=== PATIENT | female | born 1935 | race Caucasian/White ===

== ENCOUNTER → 2017-03-11 | Outpatient (CLI) | payer MEDICARE, BC ==
[~2017-03-11] MED LIST: ASPIR-LOW81 MG PO; CALTRATE-600 W600 MG PO; DARVOCET-N-101 UDTAB PO; FOSAMAX 70MG TA70 MG PO; HCTZ 25MG25 MG PO; HCTZ PO; LEVOTHYROXIN0.075 MG PO; LOPRESSOR 225 MG/TAB PO; LOTREL 5 MG-201 CAP PO; MICRO-K8 MEQ PO; POTASSIUM CH2 MEQ/ML PO; PROFERRIN PO; SYNTHROID0.075 MG/T PO; TYLENOL 500MG500 MG PO; ZOCOR 20MG20 MG PO; [UNRECOGNIZED DRUG - CODE] PO; [UNRECOGNIZED DRUG - OTHER] PO
== END ==
LOC: MC.RAD 11:33
DX: Z12.31 Encounter for screening mammogram for malignant neoplasm of breast (principal)

== ENCOUNTER → 2018-03-19 | Outpatient (CLI) | payer MEDICARE, BC | LOC: MC.RAD 10:34 | DX: Z12.31 Encounter for screening mammogram for malignant neoplasm of breast (principal) ==

== ENCOUNTER → 2019-03-28 | Outpatient (CLI) | payer MEDICARE, BC ==
[~2019-03-28] MED LIST changes: +NITROSTAT0.4 MG/TAB SL; +PRILOSEC 20MG20 MG PO; +SYNTHROID0.088 MG/T PO
== END ==
LOC: MC.RAD 10:28
DX: Z12.31 Encounter for screening mammogram for malignant neoplasm of breast (principal)

== ENCOUNTER 2019-09-14 14:05 | Emergency (ER) | payer MEDICARE, BC ==
[~2019-09-14] VITALS: Ht 157.5 cm; Wt 54.5 kg
[2019-09-14 14:11] VITALS: TEMP 97.9
[2019-09-14] MEDS ORDERED: LOTREL 5/20 CAP1 CAP PO (15:02)
[2019-09-14 15:03] LABS: PROTHROMBIN TIME 11.9 SECONDS (9.7-12.8)
[2019-09-14] MEDS ORDERED: ASPIRIN 81M81 MG/TA2 PO (15:03)
[2019-09-14] MEDS ORDERED: ELIQUIS 5MG PO (15:03)
[2019-09-14] MEDS ORDERED: SYNTHROID0.075 MG/T PO (15:04)
[2019-09-14] MEDS ORDERED: SYNTHROID0.088 MG/T PO (15:06)
[2019-09-14 15:10] LABS: ALBUMIN 4.8 gm/dL (3.5-5.0); BILIRUBIN,TOTAL 0.6 mg/dL (0.0-1.0); CALCIUM 8.9 mg/dL (8.4-10.2); CREATININE, serum 1.16 (0.52-1.25); POTASSIUM 3.3 mmol/L (3.4-5.0); TOTAL PROTEIN 8.1 gm/dL (6.4-8.2)
[2019-09-14 15:22] LABS: BASO % 0.4 % (0.0-2.0); GRAN # 7.4 (1.4-6.5); GRAN % 79.2 % (42.2-75.2); HEMATOCRIT 39.2 % (37.0-47.0); HEMOGLOBIN 13.2 g/dl (12.5-16.0); LYMPH # 1.3 (1.2-3.4); LYMPH % 13.5 % (20.0-51.0); MEAN CELL VOLUME 95 fl (80.0-100.0); MEAN CORPUSCULAR HEMOGLOBIN 32 pg (27.0-31.0); MEAN CORPUSCULAR HGB CONC 34 g/dl (33.0-37.0); MEAN PLATELET VOLUME 10.3 fl (7.4-10.4); MONO # 0.6 (0.1-0.6); MONO % 6.5 % (1.7-9.3); PLATELET COUNT 177 K/mm3 (130-400); RED BLOOD COUNT 4.11 M/mm3 (4.10-5.30); REDCELL DISTRIBUTION WIDTH-CV 13.2 % (11.5-14.5)
[2019-09-14 15:45] VITALS: BP 116/68; PULSE 70
== END 2019-09-14 15:45 | disposition short-term general hospital (02) ==
LOC: COL.ER 14:05
PROVIDERS: Emergency Medicine
DX: I61.8 Other nontraumatic intracerebral hemorrhage (principal); Z79.82 Long term (current) use of aspirin; Z79.01 Long term (current) use of anticoagulants
CPT/HCPCS: C9132; J1953; J7030

== ENCOUNTER 2021-05-12 11:02 | Emergency (ER) | payer MEDICARE, BC ==
[~2021-05-12] VITALS: Ht 157.5 cm; Wt 61.4 kg
[~2021-05-12 11:02] MED LIST changes: +ASPIRIN 32325 MG/TAB PO; +ASPIRIN 81M81 MG/TA2 PO; +COLACE 100100 MG/CAP PO; +DULCOLAX STOOL100 MG PO; +ELIQUIS 5MG PO; +K-DUR20 MEQ PO; +KEPPRA 500MG500 MG PO; +LIPITOR20 MG PO; +LIQUIFILM TEARS15 ML OU; +LOTREL 5/20 CAP1 CAP PO; +LOVENOX 3030 MG/0.3 SQ; +MAG-OX 400400 MG/TAB PO; +MILK OF MA400 MG/52 PO; +NORVASC 5MG5 MG/TAB PO; +PACERONE100 MG PO; +PEPCID 20MG TAB20 MG PO; +TYLENOL 325MG325 MG PO; +TYLENOL SU650 MG/SUP RC
[2021-05-12 11:08] VITALS: BP 155/80; PULSE 78; TEMP 98.2
[2021-05-12] MEDS ORDERED: CLEOCIN HCL300 MG PO (11:30)
== END 2021-05-12 11:50 | disposition home or self-care (01) ==
LOC: COL.ER 11:02
DX: K04.7 Periapical abscess without sinus (principal); I10 Essential (primary) hypertension; E03.9 Hypothyroidism, unspecified; E78.5 Hyperlipidemia, unspecified; I48.91 Unspecified atrial fibrillation; Z79.890 Hormone replacement therapy; Z79.899 Other long term (current) drug therapy
CPT/HCPCS: J1100

== ENCOUNTER 2021-07-24 20:10 | Emergency (ER) | payer MEDICARE, BC ==
[~2021-07-24] VITALS: Ht 157.5 cm; Wt 61.4 kg
[~2021-07-24 20:10] MED LIST changes: +CLEOCIN HCL300 MG PO
[2021-07-24 20:13] VITALS: TEMP 98
[2021-07-24 21:27] LABS: BASO % 0.4 % (0.0-2.0); GRAN # 4.4 K/mm3 (1.4-6.5); GRAN % 80.8 % (42.2-75.2); HEMOGLOBIN 13.6 g/dl (12.5-16.0); LYMPH # 0.5 K/mm3 (1.2-3.4); LYMPH % 8.4 % (20.0-51.0); MEAN CELL VOLUME 92 fl (80.0-100.0); MEAN CORPUSCULAR HEMOGLOBIN 31 pg (27-31); MEAN CORPUSCULAR HGB CONC 34 g/dl (33.0-37.0); MEAN PLATELET VOLUME 10.4 fl (7.4-10.4); MONO # 0.5 K/mm3 (0.1-0.6); MONO % 9.9 % (1.7-9.3); PLATELET COUNT 157 K/mm3 (130-400); RED BLOOD COUNT 4.34 M/mm3 (4.10-5.30); REDCELL DISTRIBUTION WIDTH-CV 13.2 % (11.5-14.5)
[2021-07-24 21:34] LABS: BILIRUBIN,TOTAL 0.5 mg/dL (0.2-1.2); CALCIUM 8.5 mg/dL (8.4-10.2); CREATININE, serum 1.27 mg/dL (0.57-1.11); POTASSIUM 3.3 mmol/L (3.5-4.5); TOTAL PROTEIN 7.4 gm/dL (6.2-8.1)
[2021-07-24 22:23] LABS: COLLECTION METHOD CATHETER
[2021-07-24 22:30] LABS: PH 6 (5-8); SQUAMOUS EPITHELIAL 0-2 /hpf (0-10); URINE APPEARANCE Hazy (CLEAR/HAZY); URINE BACTERIA None Seen /hpf (NONE SEEN); URINE BILIRUBIN Negative (NEGATIVE); URINE BLOOD Negative (NEGATIVE); URINE COLOR Yellow (YELLOW); URINE GLUCOSE Negative (NEGATIVE); URINE KETONE 1+ (NEGATIVE); URINE LEUKOCYTE ESTERASE Negative (NEGATIVE); URINE NITRATE Negative (NEGATIVE); URINE PROTEIN(semi-quant) Negative (NEGATIVE); URINE RBC 0-2 /hpf (0-2); URINE UROBILINOGEN Negative (NEGATIVE)
[2021-07-25 07:33] VITALS: BP 118/75; PULSE 83
--- NOTE | 2021-07-26 07:30 | NUR ---
On 07/25/2021, social worker masters contacted patient's son and discussed home health support. Patient had been overnight in the emergency room and is COVID positive. Patient lives with son and daughter in law. SonHiren stated that family and a private hired caregiver was providing care for patient in their home. Patient previously went to day services at [facility] until increased COVID activity in the facility. Son states patient previously had hospice services and was open to residential and physical/occupational therapies from home health. A referral was made to [facility] as they serve COVID patients. Worker spoke with nurse mikey Gabriel at Dr Lozano's office and advised of the above information and secured that Dr Lozano would support and write orders for home health. Worker faxed clinical information to [facility] and spoke with Bhavin regarding the referral. Bhavin stated they can accept patient.
== END 2021-07-25 07:57 | disposition home or self-care (01) ==
LOC: COL.ER 20:10
PROVIDERS: Personal Emergency Response Attendant
DX: U07.1 COVID-19 (principal); I10 Essential (primary) hypertension; E03.9 Hypothyroidism, unspecified; E78.5 Hyperlipidemia, unspecified; I48.91 Unspecified atrial fibrillation; Z79.890 Hormone replacement therapy; Z79.899 Other long term (current) drug therapy

== ENCOUNTER 2024-01-07 17:36 | Inpatient (IN) | payer MEDICARE, BC ==
[~2024-01-07] VITALS: Ht 157.5 cm; Wt 56.5 kg
[2024-01-07 13:37] VITALS: BP 132/72; PULSE 71; TEMP 97.8
[~2024-01-07 17:36] MED LIST changes: +ATIVAN 0.50.5 MG/TAB PO; +CEPHALEXIN500 M1 PO; +SENNA-S 50 MG-81 TAB PO; +VITAMIN D31000 IU PO
[2024-01-07 18:06] LABS: BASO % 0.4 % (0.0-2.0); HEMATOCRIT 38.5 % (37.0-47.0); LYMPH # 1.7 K/mm3 (1.2-3.4); LYMPH % 31.1 % (20.0-51.0); MEAN CELL VOLUME 93 fl (80.0-100.0); MEAN CORPUSCULAR HEMOGLOBIN 32 pg (27-31); MEAN CORPUSCULAR HGB CONC 34 g/dl (33.0-37.0); MEAN PLATELET VOLUME 10.2 fl (7.4-10.4); MONO # 0.6 K/mm3 (0.1-0.6); MONO % 11.1 % (1.7-9.3); PLATELET COUNT 150 K/mm3 (130-400); RED BLOOD COUNT 4.13 M/mm3 (4.10-5.30); REDCELL DISTRIBUTION WIDTH-CV 12.8 % (11.5-14.5)
[2024-01-07 18:28] LABS: ALBUMIN 3.5 g/dL (3.4-4.8); BILIRUBIN,TOTAL 0.7 mg/dL (0.2-1.2); CALCIUM 9.4 mg/dL (8.4-10.2); CREATININE, serum 1.29 mg/dL (0.57-1.11); POTASSIUM 3.1 mEq/L (3.5-4.5); TOTAL PROTEIN 6.7 g/dl (6.2-8.1)
[2024-01-07] MEDS ORDERED: Ondansetron 4 MG/2 ML VIAL IV ONE (19:15)
[2024-01-07] MEDS ORDERED: fentaNYL 50 MCG/ML 2 ML VIAL IV ONE (19:15)
[2024-01-07] MEDS ORDERED: MIRALAX PA17 GM/Dose PO (19:18)
[2024-01-07] MEDS ORDERED: ATIVAN 0.50.5 MG/TAB PO (19:18)
[2024-01-07] MEDS ORDERED: TYLENOL PM EXTR1 TA1 PO (19:19)
[2024-01-07] MEDS ORDERED: Polyethylene Glycol 3350 17 GM PDS PO PRN (19:30)
[2024-01-07] MEDS ORDERED: LORazepam 0.5 MG TAB PO PRN (19:30)
[2024-01-07] MEDS ORDERED: Naloxone 0.4 MG/ML VIAL IV PRN (19:45)
[2024-01-07] MEDS ORDERED: oxyCODONE 5 MG TAB PO PRN (19:45)
[2024-01-07] MEDS ORDERED: D5 1/2 NS 1,000 ML IV SCH (19:45)
[2024-01-07] MEDS ORDERED: Morphine 4 MG/ML VIAL IV PRN (19:45)
[2024-01-07] MEDS ORDERED: *Potassium Replacement Protocol MC SCH (20:00)
[2024-01-07] MEDS ORDERED: Potassium Bicarbonate/Citrate 20 MEQ Effervescent TAB PO SCH (20:00)
[2024-01-07] MEDS ORDERED: Acetaminophen 500 MG TAB PO SCH (20:42)
[2024-01-07 20:57] VITALS: BP 169/74; PULSE 69; TEMP 98.3
[2024-01-07 21:00] VITALS: BP_SYST 169
[2024-01-07] MEDS ORDERED: Sennosides/Docusate 8.6-50 MG TAB PO SCH (21:00)
[2024-01-07 21:26] LABS: INR 1.1 (0.8-3.0); PROTHROMBIN TIME 11.7 SECONDS (9.7-12.8)
[2024-01-07 21:34] LABS: COLLECTION METHOD CATHETER
[2024-01-07 21:41] LABS: URINE APPEARANCE CLEAR (CLEAR/HAZY); URINE BLOOD NEGATIVE (NEGATIVE); URINE COLOR YELLOW (YELLOW); URINE GLUCOSE NEGATIVE (NEGATIVE); URINE KETONE TRACE (NEGATIVE); URINE NITRATE NEGATIVE (NEGATIVE); URINE PROTEIN(semi-quant) TRACE (NEGATIVE)
[2024-01-07 21:43] LABS: TSH w REFLEX 0.911 uIU/mL (0.350-4.940)
--- NOTE | 2024-01-07 23:52 | NUR ---
Patient arrived to the floor from the ED at 2054 with daughter in law and ER staff, A/Ox2, admission assessment and intake done, medrec reviewed, denies pain or discomfort, on 2LPM via nasal cannula, with IV infusing well on left AC, with hanson to dependent drainage inserted from the ED, all needs met, call light and personal items within reach, will continue to monitor.
[2024-01-08] VITALS (17 sets, daily range): BP systolic 125–170; BP diastolic 63–85; PULSE 70–86; TEMP 97.6–98.4
--- NOTE | 2024-01-08 01:08 | NUR ---
Called Kesha, the GAS WELL DRILLING MANAGER d/t patient won't take her last dose of potassium, received an order for IV potassium 20 meq.
[2024-01-08] MEDS ORDERED: Potassium Chloride 100 ML IV SCH ×2 (01:15→07:15)
--- NOTE | 2024-01-08 04:07 | NUR ---
Patient resting in bed, eyes closed, looks comfortable.
--- NOTE | 2024-01-08 04:22 | NUR ---
Called Kesha, the OPEN SOAPER TENDER made her aware that patient's blood pressure is high, 170/85, this nurse rechecked it and it was 161/77, no new orders received.
[2024-01-08] MEDS ORDERED: hydrALAZINE 20 MG/ML 1 ML VIAL IV PRN ×2 (05:15→18:15)
[2024-01-08 06:51] LABS: BASO % 0.6 % (0.0-2.0); GRAN % 56.2 % (42.2-75.2); HEMOGLOBIN 11.3 g/dl (12.5-16.0); LYMPH # 1.1 K/mm3 (1.2-3.4); LYMPH % 31.1 % (20.0-51.0); MEAN CELL VOLUME 91 fl (80.0-100.0); MEAN CORPUSCULAR HEMOGLOBIN 31 pg (27-31); MEAN CORPUSCULAR HGB CONC 34 g/dl (33.0-37.0); MEAN PLATELET VOLUME 10.7 fl (7.4-10.4); MONO # 0.4 K/mm3 (0.1-0.6); MONO % 11.8 % (1.7-9.3); PLATELET COUNT 132 K/mm3 (130-400); RED BLOOD COUNT 3.67 M/mm3 (4.10-5.30); REDCELL DISTRIBUTION WIDTH-CV 12.8 % (11.5-14.5)
[2024-01-08 06:53] LABS: HEMATOCRIT 33.5 % (37.0-47.0)
[2024-01-08 07:05] LABS: ALBUMIN 3.4 g/dL (3.4-4.8); BILIRUBIN,TOTAL 0.6 mg/dL (0.2-1.2); CALCIUM 7.8 mg/dL (8.4-10.2); CREATININE, serum 1.07 mg/dL (0.57-1.11); POTASSIUM 3.4 mEq/L (3.5-4.5); TOTAL PROTEIN 6.2 g/dl (6.2-8.1)
[2024-01-08] MEDS ORDERED: Cholecalciferol (Vit D3) 1000 Units TAB PO SCH (09:00)
[2024-01-08] MEDS ORDERED: amLODIPine 5 MG TAB PO SCH (09:00)
--- NOTE | 2024-01-08 09:16 | NUR ---
bridge ironworker met with pt and [id number], Sherry to discuss discharge planning. Sherry informed PRETTY that pt is a resident of [facility]. She sees Dr. Lozano and obtains medications from [facility] with no difficulties. She reports pt needs some assistance with ADLS and uses a [facility] for DME. She has a DPOA-HC listing daughter, Iona. PRETTY advised she will follow along for PT/OT notes to ensure pt is safe to return home, or if she needs rehab. Sherry verbalized understanding of this. PRETTY called [facility] and was informed pt is a resident at the [facility]. PRETTY requested DPOA-HC from BECCA Phelan. Discharge Plan: tbd after surgery today
--- NOTE | 2024-01-08 11:00 | NUR ---
This nurse took over care of the patient. Patient and family notified. Call light within reach
[2024-01-08] MEDS ORDERED: TYLENOL 325MG325 MG PO (11:11)
--- NOTE | 2024-01-08 11:11 | NUR ---
pick pack worker receieved DPOA-HC listing daughter, Iona. PRETTY placed in her chart. PRETTY faxed updates to [facility] f: [phone]. Discharge Plan: tbd after surgery today
--- NOTE | 2024-01-08 11:19 | NUR ---
D: Flight Engineer Manager stopped by room on rounds. A: Pt was resting and content with family in the room. Family asked for prayer and light technician prayed with pt and family. Both appreciated the visit. P: Flight Engineer Manager informed pt and family that if they needed anything from the light technician area to let their nurse know. Flight Engineer Manager will follow up as needed.
[2024-01-08] MEDS ORDERED: LR 1,000 ML IV SCH (14:00)
[2024-01-08] MEDS ORDERED: Lidocaine PF 2% (20 MG/ML) 5 ML VIAL ONE ×2 (16:18)
[2024-01-08] MEDS ORDERED: dexAMETHasone 10 MG/ML VIAL ONE (16:20)
[2024-01-08] MEDS ORDERED: fentaNYL 50 MCG/ML 2 ML VIAL ONE ×2 (16:23→16:37)
[2024-01-08] MEDS ORDERED: Midazolam 2 MG/2 ML VIAL ONE (16:37)
[2024-01-08] MEDS ORDERED: oxyCODONE 5 MG TAB PO PRN (17:30)
[2024-01-08] MEDS ORDERED: Magnes Hydrox (MOM) 80 MG/ML 30 ML CUP PO PRN (17:30)
[2024-01-08] MEDS ORDERED: D5LR 1,000 ML IV SCH (17:30)
[2024-01-08] MEDS ORDERED: Naloxone 0.4 MG/ML VIAL IV PRN (17:30)
[2024-01-08] MEDS ORDERED: Albuterol 90 MCG/PUFF 8 GM MDI IH ONE (17:46)
[2024-01-08] MEDS ORDERED: ePHEDrine 50 MG/ML VIAL ONE (17:56)
[2024-01-08] MEDS ORDERED: Meperidine 50 MG/ML 1 ML VIAL IV PRN (18:15)
[2024-01-08] MEDS ORDERED: fentaNYL 50 MCG/ML 1 ML SYRINGE/VIAL [PACU/SDC ONLY] IV PRN (18:15)
[2024-01-08] MEDS ORDERED: Ondansetron 4 MG/2 ML VIAL IV PRN (18:15)
[2024-01-08] MEDS ORDERED: Acetaminophen 500 MG TAB PO SCH (18:20)
[2024-01-08] MEDS ORDERED: Sennosides/Docusate 8.6-50 MG TAB PO SCH (21:00)
[2024-01-08] MEDS ORDERED: ceFAZolin 1 G in Water For Injection,Sterile 10 ML IV SCH (21:30)
[2024-01-09] VITALS (12 sets, daily range): BP systolic 125–167; BP diastolic 69–79; PULSE 69–82; TEMP 97.9–98.6
--- NOTE | 2024-01-09 00:58 | NUR ---
NURSING SHIFT ASSESSMENT COMPLETED. THE PATIENT WAS ALERT AND ORIENTED TO SELF BUT NOT PLACE. THE PATIENT FOLLOWS COMMANDS WELL. THE BED ALARM IS ON SINCE THE PATIENT HAD A RECENT FALL. THE CALL LIGHT IS WITHIN REACH AND THE BED IS IN THE LOW POSITION. THE PATIENT DENIED PAIN OR DISCOMFORT. THE RLE IS ELEVATED AND ICE IS APPLIED TO THE RIGHT HIP. NORMAN HOSE AND SCDS IN PLACE. THE DRESSING IS C/D/I.
[2024-01-09 06:41] LABS: HEMATOCRIT 37.9 % (37.0-47.0); HEMOGLOBIN 13.1 g/dl (12.5-16.0)
--- NOTE | 2024-01-09 07:30 | NUR ---
PATIENT PULLED IV SITE OUT BEFORE SHIFT CHANGE, NOTED INTERMITTENT CONFUSION. PATIENT HAS HX OF DEMENTIA. STERILE PREPARATION TECHNICIAN RN TRIED X2 BUT UNABLE TO RESTART IV.
--- NOTE | 2024-01-09 08:00 | NUR ---
PATIENT IS A&O X2, NOTED INTERMITTENT CONFUSION BUT PLEASANT. RESTARTED, 22 GAUZE IV SITE ON MY FIRST ATTEMPT. LAST DOSE OF IV ABX GIVEN, SEE MAR, IV TO INT AND WRAPPED IN COBAN. VSS. NO C/O PAIN IN RLE AT REST. PT/OT TO EVAL AND TREAT THIS AM. PATIENT CURRENTLY SITTING UP IN BED WITH BREAKFAST TRAY. NO C/O N/V. AM MEDS GIVEN. HEAD TO TOE ASSESSMENT COMPLETE. HOGAN TO DD. SCD'S TO BLE. NO OTHER NEEDS AT THIS TIME. CALL LIGHT IN REACH. BED ALARM ON.
[2024-01-09] MEDS ORDERED: Calcium Carbonate 500 MG TAB PO SCH (09:00)
[2024-01-09] MEDS ORDERED: Ascorbic Acid 500 MG TAB PO SCH (09:00)
[2024-01-09] MEDS ORDERED: Multivitamin TAB PO SCH (12:00)
[2024-01-10] VITALS (13 sets, daily range): BP systolic 113–173; BP diastolic 62–77; PULSE 69–74; TEMP 97.9–98.8
--- NOTE | 2024-01-10 04:03 | NUR ---
PT ALERT AND ORIENTED, CAN BE FIDGETTY AT TIMES WHEN FAMILY IS NOT VISITING. ON 1 LITER NC,VSS. DENIES PAIN. ASSESSED AND MEDICATED PER ORDERS. GOT UP TO BSC WITH TWO PERSON ASSIST. DENIES PAIN. CALL LIGHT WITHIN REACH, FALL PRECAUTIONS IN PLACE.
[2024-01-10 06:52] LABS: HEMATOCRIT 32.2 % (37.0-47.0); HEMOGLOBIN 11.1 g/dl (12.5-16.0)
--- NOTE | 2024-01-10 08:00 | NUR ---
PATIENT IS ORIENTED X2 BUT DISPLAYS OCCATIONAL CONFUSION/FORGETFULNESS. PATIENT HAS A HX OF DEMENTIA AND FAMILY REPORTS THIS IS BASELINE FOR HER. VSS. C/O PAIN IN RLE BUT ISN'T ABLE TO USE THE PAIN SCALE VERY WELL. GAVE PRN ROXYCODONE WITH AM MEDS. NO C/O N/V. PATIENT SITTING UP IN BED WITH BREAKFAST TRAY, TOLERATING GENERAL DIET. LEFT FORARM IV TO INT. HEAD TO TOE ASSESSMENT COMPLETE. DNR/DNI STATUS. RIGHT HIP DSG IS CD&I WITH GAUZE & TEGADERM. ICE PACK APPLIED TO RIGHT HIP. TEDS & SCD'S TO BLE. NO OTHER NEEDS AT THIS TIME. CALL LIGHT IN REACH. BED ALARM ON.
[2024-01-10] MEDS ORDERED: Potassium Bicarbonate/Citrate 20 MEQ Effervescent TAB PO SCH (12:30)
--- NOTE | 2024-01-10 22:46 | NUR ---
PT ALERT AND ORIENTED TO SELF, VSS. SON IS AT BEDSIDE REQUESTING THAT SHE GET PAIN MEDICATION. PAIN MED ADMINISTERD, PER PATIENT SHE HAD A LOT OF PAIN BUT COULDNT GIVE ME A NUMBER. " IT WOULD BE UP THERE" WHEN I ASKED ON A SCALE FROM 1-10 WHAT HER PAIN WAS. I ASKED THAT THE PT EAT SOME CRACKERS SO THAT SHE WOULF HAVE SOMETHING ON HER STOMACH. PT IS NOW SLEEPING AND EASILY AROUSED. CALL LIGHT WITHIN REACH AND FALLL PRECAUTIONS IN PLACE.
[2024-01-11 00:09] VITALS: BP 142/71; PULSE 75; TEMP 98.3
[2024-01-11 01:00] VITALS: BP_SYST 142
[2024-01-11 04:01] VITALS: BP 146/73; PULSE 71; TEMP 97.8
[2024-01-11 05:00] VITALS: BP_SYST 146
[2024-01-11 05:33] LABS: BASO % 0.6 % (0.0-2.0); GRAN # 2.6 K/mm3 (1.4-6.5); GRAN % 50.5 % (42.2-75.2); HEMOGLOBIN 11.7 g/dl (12.5-16.0); LYMPH # 1.9 K/mm3 (1.2-3.4); LYMPH % 36.7 % (20.0-51.0); MEAN CELL VOLUME 91 fl (80.0-100.0); MEAN CORPUSCULAR HEMOGLOBIN 31 pg (27-31); MEAN CORPUSCULAR HGB CONC 35 g/dl (33.0-37.0); MEAN PLATELET VOLUME 10.6 fl (7.4-10.4); MONO # 0.6 K/mm3 (0.1-0.6); MONO % 11.8 % (1.7-9.3); PLATELET COUNT 174 K/mm3 (130-400); RED BLOOD COUNT 3.74 M/mm3 (4.10-5.30)
[2024-01-11 05:41] LABS: HEMATOCRIT 33.9 % (37.0-47.0)
[2024-01-11 06:06] LABS: CALCIUM 8.1 mg/dL (8.4-10.2); CREATININE, serum 1.04 mg/dL (0.57-1.11); MAGNESIUM 1.9 mg/dL (1.6-2.6); POTASSIUM 3.7 mEq/L (3.5-4.5)
[2024-01-11 07:27] VITALS: BP 153/80; PULSE 74; TEMP 98.3
--- NOTE | 2024-01-11 08:00 | NUR ---
PATIENT IS ORIENTED X2 BUT DISPLAYS OCCATIONAL CONFUSION/FORGETFULLNESS. PATIENT HAS HX OF DEMENTIA. VSS. NO COMPLAINTS. RIGHT HIP DSG IS CD&I WITH GAUZE & TEGADERM. TEDS & SCD'S TO BLE. 2 ASSIST WITH WALKER. PT/OT CONSULTED. HEAD TO TOE ASSESSMENT COMPLETE. BREAKFAST TRAY AT BEDSIDE. AM MEDS GIVEN. LEFT FORARM IV TO INT. NO C/O N/V. PLAN IS FOR PATIENT TO DISCHARGE TO [facility] TODAY. NO OTHER NEEDS AT THIS TIME. CALL LIGHT IN REACH. BED ALARM ON.
[2024-01-11] MEDS ORDERED: ASPIRIN E.C. 8181 MG PO (09:40)
[2024-01-11] MEDS ORDERED: ROXICODONE 55 MG/TAB PO ×2 (09:41→10:56)
[2024-01-11] MEDS ORDERED: VITAMIN C500 MG PO (09:41)
[2024-01-11] MEDS ORDERED: OSCAL 500 TAB500 MG PO (09:41)
[2024-01-11] MEDS ORDERED: DUO-KAPS1 CAP PO (09:42)
--- NOTE | 2024-01-11 11:40 | NUR ---
[facility] VAN SERVICE HERE. DISCHARGE PACKET GIVEN TO SUPERVISOR PIPELINES. DAUGHTER PACKED PATIENT'S PERSONAL BELONGINGS. RN DC'D IV SITE AND COVERED WITH GAUZE & COBAN. PATIENT IS DRESSED AND ESCORTED OUT VIA WC. CALLED REPORT TO [facility] NURSE. PATIENT DISCHARGED.
--- NOTE | 2024-01-11 12:50 | NUR ---
floor worker well service reviewed PT notes recommending SNF. PRETTY contacted [facility] to determine baseline, the staff member stated patient is normally ambulatory with stand by assist. PRETTY explained patient is currently max assist and is being recommended SNF. PRETTY left a voicemail for the nurse at [facility]. PRETTY met with patient and her daughter, Iona. PRETTY provided the Medicare.gov for SNF options. Iona and patient chose to send referrals to [facility] and [facility]. They stated [facility] would be first choice and [facility] would be second choice. PRETTY sent referrals to [facility] and [facility] via secure email. SW was notified [facility] and [facility] are able to accept. PRETTY notified [facility] patient's family chose another facility. [facility] expressed they are able to merchandise pickup/receiving associate patient at 11:30 am. floor worker well service notified patient, patient's daughter, nurse and sustainable communities designer. PRETTY reviewed the important message from Medicare with patient and her daughter/DPOA-HC, Iona. Patient and daughter understood, patient signed. PRETTY made a copy, placed original in chart and provided copy to patient. No questions or concerns at this time. PRETTY secure emailed discharge orders to [facility]. PRETTY updated [facility] of patient discharging to [facility] for rehab before returning to them. PRETTY faxed updates and discharge orders to [facility]. Discharge plan: [facility] - SNF
== END 2024-01-11 11:40 | DRG 480 ==
LOC: COL.ER 17:36 → SURG 19:27
PROVIDERS: Family Medicine; Internal Medicine; Nurse Practitioner Family; Orthopaedic Surgery; ADMIT Internal Medicine
PROC: 0QS634Z Reposition Right Upper Femur with Internal Fixation Device, Percutaneous Approach (ICD-10-PCS; principal; 2024-01-08 16:00)
DX: S72.091A Other fracture of head and neck of right femur, initial encounter for closed fracture (principal); J96.01 Acute respiratory failure with hypoxia; E03.9 Hypothyroidism, unspecified; E78.5 Hyperlipidemia, unspecified; Z66 Do not resuscitate; W18.39XA Other fall on same level, initial encounter; I48.91 Unspecified atrial fibrillation; F03.90 Unspecified dementia, unspecified severity, without behavioral disturbance, psychotic disturbance, mood disturbance, and anxiety; I12.9 Hypertensive chronic kidney disease with stage 1 through stage 4 chronic kidney disease, or unspecified chronic kidney disease; E87.6 Hypokalemia; F41.9 Anxiety disorder, unspecified; M19.90 Unspecified osteoarthritis, unspecified site; J43.9 Emphysema, unspecified; N18.9 Chronic kidney disease, unspecified; M85.80 Other specified disorders of bone density and structure, unspecified site; Y93.89 Activity, other specified; Y92.128 Other place in nursing home as the place of occurrence of the external cause; Z91.012 Allergy to eggs; Z95.0 Presence of cardiac pacemaker; Z79.899 Other long term (current) drug therapy; Z79.890 Hormone replacement therapy; Z86.73 Personal history of transient ischemic attack (TIA), and cerebral infarction without residual deficits; Z23 Encounter for immunization
CPT/HCPCS: A4314; A9284; C1713; J0690; J1100; J2250; J2405; J2704; J2795; J3010; J3480